=== PATIENT | female | born 1970 | race Two or more races ===

== ENCOUNTER 2024-08-18 09:28 | Emergency (ER) | payer BC ==
[~2024-08-18] VITALS: Ht 170.2 cm; Wt 99.8 kg
[2024-08-18] MEDS ORDERED: ATORVASTATIN CA10 MG PO (10:17)
[2024-08-18] MEDS ORDERED: FLONASE16 GM NS (10:17)
[2024-08-18] MEDS ORDERED: ZESTRIL10 M1 (10:17)
[2024-08-18] MEDS ORDERED: ROPINIROLE HCL2 MG PO (10:18)
[2024-08-18] MEDS ORDERED: ALLERGY RELIEF10 M4 (10:18)
[2024-08-18] MEDS ORDERED: ATIVAN1 M1 PO (10:20)
== END 2024-08-18 10:59 | disposition home or self-care (01) ==
LOC: ER 09:30
DX: M25.572 Pain in left ankle and joints of left foot (principal); Z88.5 Allergy status to narcotic agent; Z88.6 Allergy status to analgesic agent